=== PATIENT | female | born 1940 | race Caucasian/White ===

== ENCOUNTER 2020-03-03 11:40 | Outpatient (REF) | payer MEDICARE, OTHER, SELFPAY ==
[2020-03-03 19:28] LABS: Hemoglobin A1C 6.3 % (3.8-5.6)
[2020-03-03 19:38] LABS: Anion Gap 7.7 mmol/L (3-11); BUN 18 mg/dL (7-18); CO2 29.3 mmol/L (21.0-32.0); CREATININE 0.86 mg/dL (0.55-1.02); Chloride 103 mmol/L (98-107); Glucose 113 mg/dL (74-106); Potassium 4.3 mmol/L (3.5-5.1); Sodium 140 mmol/L (136-145); TSH 1.11 uIU/mL (0.36-3.74)
== END 2020-03-03 12:00 ==
LOC: NCHCN 11:40
PROVIDERS: PCP Internal Medicine; Visit Provider Internal Medicine
DX: E11.9 Type 2 diabetes mellitus without complications (principal); E03.9 Hypothyroidism, unspecified; I20.8 Other forms of angina pectoris
CPT/HCPCS: 80048; 83036; 84443

== ENCOUNTER 2022-03-01 17:02 | Outpatient (REF) | payer MEDICARE, SELFPAY ==
[2022-03-01 19:21] LABS: HCT 46.9 % (36.0-46.0); HGB 14.7 g/dL (11.2-15.7); MCH 28.4 pg (27.0-33.0); MCHC 31.3 % (32.0-36.0); MCV 91 fL (80-95); MPV 10.3 fL (8.0-11.0); Platelet Count 235 10^3/uL (130-400); RBC 5.18 10^6/uL (3.93-5.22); RDW 13.6 % (11.7-14.6); RDW-SD 45.4 fL; WBC 6.17 10^3/uL (4.4-10.8)
[2022-03-01 19:23] LABS: BUN 17 mg/dL (7-18); CREATININE 0.7 mg/dL (0.55-1.02); Calcium 8.8 mg/dL (8.5-10.1); Chloride 101 mmol/L (98-107); Glucose 97 mg/dL (74-106); NT-proBNP 142 pg/mL (<300); Sodium 137 mmol/L (136-145)
[2022-03-01 19:32] LABS: D-Dimer 430 ng/mlFEU (<500)
== END 2022-03-01 17:03 | disposition home or self-care (01) ==
LOC: NCHCN 17:02
PROVIDERS: PCP Internal Medicine; Visit Provider Internal Medicine
DX: I26.99 Other pulmonary embolism without acute cor pulmonale (principal); J90 Pleural effusion, not elsewhere classified; R53.83 Other fatigue; R06.89 Other abnormalities of breathing
CPT/HCPCS: 80048; 85027; 83880; 85379

== ENCOUNTER 2023-03-18 12:54 | Outpatient (REF) | payer MEDICARE, SELFPAY ==
[2023-03-18 19:33] LABS: FREE T4 1.48 ng/dL (0.76-1.46); TSH 0.19 uIU/mL (0.36-3.74)
== END 2023-03-18 12:55 | disposition home or self-care (01) ==
LOC: NCHCN 12:54
PROVIDERS: PCP Internal Medicine; Visit Provider Internal Medicine
DX: E11.9 Type 2 diabetes mellitus without complications (principal); I35.0 Nonrheumatic aortic (valve) stenosis; I47.1 Supraventricular tachycardia; E66.9 Obesity, unspecified
CPT/HCPCS: 84439; 84443

== ENCOUNTER 2023-05-29 20:30 | Outpatient (REF) | payer MEDICARE, SELFPAY ==
[2023-05-29 21:07] LABS: TSH 0.54 uIU/mL (0.36-3.74)
== END 2023-05-29 20:31 | disposition home or self-care (01) ==
LOC: NCHCN 20:30
PROVIDERS: PCP Internal Medicine; Visit Provider Internal Medicine
DX: E03.9 Hypothyroidism, unspecified (principal)
CPT/HCPCS: 84443

== ENCOUNTER 2024-08-03 18:38 | Outpatient (REF) | payer MEDICARE, SELFPAY ==
[2024-08-03 19:15] LABS: HCT 48.1 % (36.0-46.0); HGB 15.3 g/dL (11.2-15.7); MCH 29.1 pg (27.0-33.0); MCHC 31.8 % (32.0-36.0); MCV 92 fL (80-95); Platelet Count 230 10^3/uL (130-400); RBC 5.25 10^6/uL (3.93-5.22); RDW 14.1 % (11.7-14.6); RDW-SD 47.5 fL; WBC 4.84 10^3/uL (4.4-10.8)
[2024-08-03 19:42] LABS: AST 15 U/L (15-37); Albumin 4.3 g/dL (3.4-5.0); Alkaline Phosphatase 89 U/L (46-116); Anion Gap 8.7 mmol/L (3-11); BUN 29 mg/dL (7-18); Bilirubin, Total 0.66 mg/dL (0.2-1.0); CO2 24.3 mmol/L (21.0-32.0); Calcium 9.3 mg/dL (8.5-10.1); Chloride 98 mmol/L (98-107); Glucose 119 mg/dL (74-106); Potassium 5.3 mmol/L (3.5-5.1); Sodium 131 mmol/L (136-145); TSH 1.51 uIU/mL (0.36-3.74); Total Protein 7.6 g/dL (6.4-8.2)
[2024-08-03 20:08] LABS: ALT 27 U/L (14-59); CREATININE 1.5 mg/dL (0.55-1.02); Estimated GFR 34.58 (mL/min/1.73m2)
== END 2024-08-03 18:39 | disposition home or self-care (01) ==
LOC: NCHCN 18:38
PROVIDERS: PCP Internal Medicine; Visit Provider Internal Medicine
DX: E03.9 Hypothyroidism, unspecified (principal)
CPT/HCPCS: 80053; 85027; 84443

== ENCOUNTER 2024-08-05 17:18 | Outpatient (REF) | payer MEDICARE, SELFPAY ==
[2024-08-05 19:55] LABS: Creatinine,Urine 143.39 mg/dL; Sodium, Urine 44 mmol/L
== END 2024-08-05 17:19 | disposition home or self-care (01) ==
LOC: NCHCN 17:18
PROVIDERS: PCP Internal Medicine; Visit Provider Internal Medicine
DX: E87.1 Hypo-osmolality and hyponatremia (principal)
CPT/HCPCS: 82565; 84300

== ENCOUNTER 2024-11-04 16:33 | Outpatient (REF) | payer MEDICARE, SELFPAY ==
[2024-11-04 19:56] LABS: Anion Gap 3.9 mmol/L (3-11); BUN 21 mg/dL (7-18); CO2 31.1 mmol/L (21.0-32.0); CREATININE 0.8 mg/dL (0.55-1.02); Calcium 9.5 mg/dL (8.5-10.1); Chloride 106 mmol/L (98-107); Estimated GFR 73.52 (mL/min/1.73m2); Glucose 115 mg/dL (74-106); Potassium 4.5 mmol/L (3.5-5.1); Sodium 141 mmol/L (136-145)
== END 2024-11-04 16:34 | disposition home or self-care (01) ==
LOC: NCHCN 16:33
PROVIDERS: PCP Internal Medicine; Visit Provider Internal Medicine
DX: E87.1 Hypo-osmolality and hyponatremia (principal)
CPT/HCPCS: 80048

== ENCOUNTER 2025-07-15 16:41 | Outpatient (REF) | payer MEDICARE, SELFPAY ==
[2025-07-15 19:09] LABS: HCT 44.5 % (36.0-46.0); HGB 14.4 g/dL (11.2-15.7); MCH 29.3 pg (27.0-33.0); MCHC 32.4 % (32.0-36.0); MCV 90 fL (80-95); MPV 10.1 fL (8.0-11.0); Platelet Count 216 10^3/uL (130-400); RBC 4.92 10^6/uL (3.93-5.22); RDW 13.3 % (11.7-14.6); RDW-SD 44.2 fL; WBC 5.77 10^3/uL (4.4-10.8)
[2025-07-15 19:46] LABS: Ferritin 184 ng/mL (8-252); Folate 16.3 ng/mL (8.6-20.0); TSH (W/Ref FT4) 0.51 uIU/mL (0.36-3.74); Vitamin B12 201 pg/mL (193-986)
== END 2025-07-15 16:42 | disposition home or self-care (01) ==
LOC: NCHCN 16:41
PROVIDERS: PCP Internal Medicine; Visit Provider Nurse Practitioner Family
DX: D64.9 Anemia, unspecified (principal); E03.9 Hypothyroidism, unspecified
CPT/HCPCS: 85027; 82607; 82728; 82746; 84443